=== PATIENT | female | born 1990 | race Caucasian/White ===

== ENCOUNTER 2017-06-09 16:38 | Inpatient (IN) | payer BC ==
[~2017-06-09] VITALS: Ht 154.9 cm; Wt 101.4 kg
[2017-06-20] VITALS (19 sets, daily range): BP systolic 97–136; BP diastolic 47–86; PULSE 68–97; TEMP 97.5–98
[2017-06-20 06:32] LABS: BASO % 0.3 % (0.0-2.0); EOS # 0.1 (0.0-0.7); EOS % 0.7 % (0-4.0); GRAN # 7.7 (1.4-6.5); GRAN % 72.6 % (42.2-75.2); HEMATOCRIT 35.2 % (37.0-47.0); HEMOGLOBIN 11.8 g/dl (12.5-16.0); LYMPH % 18.5 % (20.0-51.0); MEAN CELL VOLUME 82 fl (80.0-100.0); MEAN CORPUSCULAR HEMOGLOBIN 28 pg (27.0-31.0); MEAN CORPUSCULAR HGB CONC 34 g/dl (33.0-37.0); MEAN PLATELET VOLUME 10.1 fl (7.4-10.4); MONO # 0.8 (0.1-0.6); MONO % 7.1 % (1.7-9.3); PLATELET COUNT 249 K/mm3 (130-400); RED BLOOD COUNT 4.29 M/mm3 (4.10-5.30)
[2017-06-20] MEDS ORDERED: PRENATAL (06:48)
[2017-06-20] MEDS ORDERED: OSCAL 500 TAB500 MG PO (06:48)
[2017-06-21 01:05] VITALS: BP 98/53; PULSE 84; TEMP 97.9
[2017-06-21 08:55] VITALS: BP 116/64; PULSE 82; TEMP 97.9
[2017-06-21 16:25] VITALS: BP 114/67; PULSE 99; TEMP 98.4
[2017-06-22 08:54] VITALS: BP 129/73; PULSE 97; TEMP 98.1
[2017-06-22] MEDS ORDERED: IBU800 M1 PO (10:13)
[2017-06-22] MEDS ORDERED: PERCOCET 325 MG1 TA2 PO (10:13)
== END 2017-06-22 14:40 | disposition home or self-care (01) | DRG 766 ==
LOC: OB 06-20 05:41 → LDR 06-20 10:20 → OB 06-22 14:40
PROVIDERS: Student in an Organized Health Care Education/Training Program
PROC: 10D00Z1 Extraction of Products of Conception, Low, Open Approach (ICD-10-PCS; principal; 2017-06-20)
DX: O32.1XX0 Maternal care for breech presentation, not applicable or unspecified (principal); Z3A.39 39 weeks gestation of pregnancy; Z37.0 Single live birth
CPT/HCPCS: J0171; J0690; J1885; J2270; J2370; J2405; J2590; J2704; J7120

== ENCOUNTER 2019-09-28 09:41 | Inpatient (IN) | payer BC ==
[2019-09-28] VITALS (19 sets, daily range): BP systolic 109–137; BP diastolic 59–81; PULSE 76–107; TEMP 97.8–98.6
[~2019-09-28] VITALS: Ht 155 cm; Wt 107.7 kg
[~2019-09-28 09:41] MED LIST: IBU800 M1 PO; OSCAL 500 TAB500 MG PO; PERCOCET 325 MG1 TA2 PO; PRENATAL
--- NOTE | 2019-09-28 09:45 | NUR ---
0945- Pt. ambulatory to the floor with by her side. Pt. orientated to room and changed into gown. Pt. reports GFM, no LOF, no ctx and no blood. 0949- EFM and TOCO on and tracing. Vitals signs taken, consents signed, IV started, IV fluid bolus going, OB assessment completed. Nurse remains at bedside. 1020- EFM and TOCO removed, reactive strip noted and charted. Pre-op meds given per orders through IV. Pt. shaved, prepped and non-skid socks on. Call light within reach, Pt. denies questions or concerns at this time.
[2019-09-28] MEDS ORDERED: LEXAPRO20 MG PO (09:59)
[2019-09-28] MEDS ORDERED: PRENATAL TABLET PO (09:59)
[2019-09-28] MEDS ORDERED: PRILOSEC 20MG20 MG PO (10:00)
[2019-09-28 10:32] LABS: BASO % 0.2 % (0.0-2.0); EOS # 0.1 (0.0-0.7); EOS % 0.9 % (0-4.0); GRAN # 5.8 (1.4-6.5); GRAN % 68.1 % (42.2-75.2); HEMOGLOBIN 10.6 g/dl (12.5-16.0); LYMPH % 23.9 % (20.0-51.0); MEAN CELL VOLUME 80 fl (80.0-100.0); MEAN CORPUSCULAR HEMOGLOBIN 25 pg (27.0-31.0); MEAN CORPUSCULAR HGB CONC 32 g/dl (33.0-37.0); MEAN PLATELET VOLUME 9.9 fl (7.4-10.4); MONO # 0.5 (0.1-0.6); MONO % 6.4 % (1.7-9.3); PLATELET COUNT 267 K/mm3 (130-400); RED BLOOD COUNT 4.22 M/mm3 (4.10-5.30); REDCELL DISTRIBUTION WIDTH-CV 13.2 % (11.5-14.5)
[2019-09-28 10:34] LABS: HEMATOCRIT 33.6 % (37.0-47.0)
[2019-09-29 07:35] LABS: HEMOGLOBIN 10.1 g/dl (12.5-16.0); MEAN CELL VOLUME 80 fl (80.0-100.0); MEAN CORPUSCULAR HEMOGLOBIN 25 pg (27.0-31.0); MEAN CORPUSCULAR HGB CONC 31 g/dl (33.0-37.0); PLATELET COUNT 278 K/mm3 (130-400); RED BLOOD COUNT 4.04 M/mm3 (4.10-5.30); REDCELL DISTRIBUTION WIDTH-CV 13.3 % (11.5-14.5)
[2019-09-29 07:37] LABS: HEMATOCRIT 32.3 % (37.0-47.0)
[2019-09-29 07:38] VITALS: BP 130/80; PULSE 90; TEMP 97.6
[2019-09-29] MEDS ORDERED: IBU800 M1 PO (11:01)
[2019-09-29] MEDS ORDERED: PERCOCET 325 MG1 TA2 PO (11:01)
[2019-09-29 16:56] VITALS: BP 118/68; PULSE 97; TEMP 98.3
[2019-09-29 20:00] VITALS: BP 113/59; PULSE 91; TEMP 97.9
[2019-09-30 07:56] VITALS: BP 114/66; PULSE 76; TEMP 98.1
== END 2019-09-30 12:00 | disposition home or self-care (01) | DRG 788 ==
LOC: OB 09:41 → LDR 11:36 → OB 09-30 12:00
PROVIDERS: ADMIT Student in an Organized Health Care Education/Training Program
PROC: 10D00Z1 Extraction of Products of Conception, Low, Open Approach (ICD-10-PCS; principal; 2019-09-28)
DX: O34.211 Maternal care for low transverse scar from previous cesarean delivery (principal); O99.214 Obesity complicating childbirth; O99.52 Diseases of the respiratory system complicating childbirth; J45.909 Unspecified asthma, uncomplicated; O69.81X0 Labor and delivery complicated by cord around neck, without compression, not applicable or unspecified; Z37.0 Single live birth; Z3A.39 39 weeks gestation of pregnancy
CPT/HCPCS: J0690; J1885; J2210; J2270; J2370; J2405; J2590; J7120